=== PATIENT | male | born 1945 | race Caucasian/White ===

== ENCOUNTER 2017-11-12 15:17 | Emergency (ER) | payer OTHER ==
[~2017-11-12] VITALS: Ht 165.1 cm; Wt 77.1 kg
[~2017-11-12 15:17] MED LIST: ALD25 PO; ASPIR 8181 MG PO; BG MC; CAR30 PO; CARVEDILOL3.125 M1 PO; CILOSTAZOL100 M1 PO; CLOPIDOGREL75 M1 PO; COR200 PO; COR6 PO; DIG125 PO; GLIPIZIDE10 MG PO; L40 PO; LANTUS SOLOS100 U/M1 SQ; LEVOTHYROXIN0.025 M2 PO; METFORMIN HCL500 MG PO; POTASSIUM CHLO20 ME1 PO; SIMVASTATIN40 M1 PO; XARELTO20 M1 PO; ZES5 PO; ZORVOLEX18 MG PO
[2017-11-12 15:33] VITALS: Ht 165.1 cm; Wt 77.1 kg
[2017-11-12 17:47] VITALS: BP 120/55
== END 2017-11-12 17:47 | disposition home or self-care (01) ==
LOC: ED 15:17
DX: R33.9 Retention of urine, unspecified (principal); E11.9 Type 2 diabetes mellitus without complications; E78.00 Pure hypercholesterolemia, unspecified; E03.9 Hypothyroidism, unspecified; I10 Essential (primary) hypertension; I25.10 Atherosclerotic heart disease of native coronary artery without angina pectoris; Z89.512 Acquired absence of left leg below knee; Z90.49 Acquired absence of other specified parts of digestive tract; Z88.8 Allergy status to other drugs, medicaments and biological substances; Z88.6 Allergy status to analgesic agent

== ENCOUNTER 2017-11-16 10:30 | Emergency (ER) | payer OTHER, MEDICAID ==
[~2017-11-16] VITALS: Ht 165.1 cm; Wt 77.1 kg
[2017-11-16 10:41] VITALS: Ht 165.1 cm; Wt 77.1 kg
[2017-11-16 11:22] VITALS: BP 137/63
== END 2017-11-16 11:22 | disposition home or self-care (01) ==
LOC: ED 10:30
DX: T83.038A Leakage of other urinary catheter, initial encounter (principal); I10 Essential (primary) hypertension; E11.9 Type 2 diabetes mellitus without complications; E07.9 Disorder of thyroid, unspecified; D29.1 Benign neoplasm of prostate; Z88.6 Allergy status to analgesic agent; Z88.5 Allergy status to narcotic agent; Y92.89 Other specified places as the place of occurrence of the external cause

== ENCOUNTER 2017-12-19 09:22 | Emergency (ER) | payer OTHER, MEDICAID ==
[~2017-12-19] VITALS: Ht 165.1 cm; Wt 77.1 kg
[2017-12-19 09:32] VITALS: Ht 165.1 cm; Wt 77.1 kg
[2017-12-19 10:37] LABS: UA SPECIFIC GRAVITY 1.015 (1.005-1.035); microscopic required? YES; urine erythrocyte 3+ (NEGATIVE)
[2017-12-19 11:25] VITALS: BP 132/74
== END 2017-12-19 11:25 | disposition home or self-care (01) ==
LOC: ED 09:22
DX: N40.0 Benign prostatic hyperplasia without lower urinary tract symptoms (principal); R33.9 Retention of urine, unspecified; Z95.1 Presence of aortocoronary bypass graft; I10 Essential (primary) hypertension; E11.9 Type 2 diabetes mellitus without complications; E78.00 Pure hypercholesterolemia, unspecified; E03.9 Hypothyroidism, unspecified; Z89.511 Acquired absence of right leg below knee

== ENCOUNTER 2018-10-08 18:23 | Emergency (ER) | payer OTHER, MEDICAID ==
[~2018-10-08] VITALS: Ht 165.1 cm; Wt 80.3 kg
[2018-10-08 19:02] VITALS: Ht 165.1 cm; Wt 80.3 kg
[2018-10-08 20:43] VITALS: BP 159/71
== END 2018-10-08 20:40 | disposition home or self-care (01) ==
LOC: ED 18:23
DX: R33.9 Retention of urine, unspecified (principal); I10 Essential (primary) hypertension; E11.9 Type 2 diabetes mellitus without complications; E78.00 Pure hypercholesterolemia, unspecified; Z88.6 Allergy status to analgesic agent; Z88.5 Allergy status to narcotic agent; Z98.890 Other specified postprocedural states

== ENCOUNTER 2018-12-28 10:11 | Emergency (ER) | payer OTHER, MEDICAID ==
[~2018-12-28] VITALS: Ht 165.1 cm; Wt 68.0 kg
[2018-12-28 10:16] VITALS: Ht 165.1 cm; Wt 68.0 kg
[2018-12-28 11:32] VITALS: BP 130/64
== END 2018-12-28 11:32 | disposition home or self-care (01) ==
LOC: ED 10:11
DX: R33.9 Retention of urine, unspecified (principal); R10.30 Lower abdominal pain, unspecified; I10 Essential (primary) hypertension; E11.9 Type 2 diabetes mellitus without complications; E78.00 Pure hypercholesterolemia, unspecified; Z98.890 Other specified postprocedural states; Z88.5 Allergy status to narcotic agent

== ENCOUNTER 2019-01-01 07:06 | Emergency (ER) | payer OTHER, MEDICAID ==
[~2019-01-01] VITALS: Ht 165.1 cm; Wt 68.0 kg
[2019-01-01 07:15] VITALS: BP 132/65; Ht 165.1 cm; Wt 68.0 kg
== END 2019-01-01 11:54 | disposition home or self-care (01) ==
LOC: ED 07:06
DX: Z46.6 Encounter for fitting and adjustment of urinary device (principal); I10 Essential (primary) hypertension; E11.9 Type 2 diabetes mellitus without complications; E78.00 Pure hypercholesterolemia, unspecified; Z87.448 Personal history of other diseases of urinary system; Z88.5 Allergy status to narcotic agent